=== PATIENT | female | born 1950 | race Caucasian/White ===

== ENCOUNTER 2017-01-12 17:54 | Emergency (ER) | payer MEDICARE, OTHER ==
[~2017-01-12] VITALS: Ht 147.3 cm; Wt 68.2 kg
[2017-01-12 18:28] VITALS: Ht 147.3 cm; Wt 68.2 kg
[2017-01-12] MEDS ORDERED: LIDOCAINE 1% (MDV) 20 ML INJ SC ONE (18:30)
[2017-01-12] MEDS ORDERED: ASPI325T4 PO (18:55)
[2017-01-12] MEDS ORDERED: EXEM25TA PO (18:55)
[2017-01-12] MEDS ORDERED: DOCU-144 PO (18:55)
[2017-01-12] MEDS ORDERED: OMEP-28 PO (18:55)
[2017-01-12] MEDS ORDERED: METH-493 PO (18:55)
[2017-01-12] MEDS ORDERED: ATOR10TA65 PO (18:55)
[2017-01-12] MEDS ORDERED: METO-335 PO (18:55)
[2017-01-12] MEDS ORDERED: INSU100C SQ (18:55)
--- NOTE | 2017-01-12 18:55 | ERD ---
ER Documentation Chief Complaint Chief Complaint biba fr Brent Herrera, large red draining wound middle of back x2 wks HPI 66-year-old female presents here in emergency department for complaints of a redness and swelling in the back one week now. Patient is complaining of pain throbbing pain, 6/10 scale, as was upon touching the area. Patient denies any fever or chills. Patient is diabetic. ROS All systems reviewed and are negative except as per history of present illness. Medications Home Meds Reported Medications Omeprazole Magnesium (Omeprazole Magnesium) Unknown Strength Capsule.dr, PO DAILY, #30 CAP 01/12/17 Metoprolol Succinate* (Toprol XL*) Unknown Strength Tab.sr.24h, PO DAILY, #90 TAB 01/12/17 Methimazole* (Methimazole*) Unknown Strength Tablet, PO TID, TAB 01/12/17 Insulin Lispro (Humalog) Unknown Strength Cartridge, SQ 01/12/17 Exemestane* (Exemestane*) Unknown Strength Tablet, PO, TAB 01/12/17 Docusate Sodium* (Colace*) Unknown Strength Capsule, PO DAILY, #30 CAP 01/12/17 Atorvastatin Calcium (Atorvastatin Calcium) Unknown Strength Tablet, PO QHS, # 30 TAB 01/12/17 Aspirin* (Aspirin*) Unknown Strength Tablet, PO DAILY, TAB 01/12/17 Allergies Allergies: Coded Allergies: No Known Allergy (Unverified , 05/03/13) PMhx/Soc History of Surgery: Yes (rue fx with meatl slime placement) Anesthesia Reaction: No Hx Neurological Disorder: No Hx Respiratory Disorders: Yes ("OCCASIONAL ASTHMA") Hx Cardiac Disorders: Yes (HTN) Hx Psychiatric Problems: No Hx Miscellaneous Medical Probl: Yes (S/P FALL AT HOME. HTN, ASTHMA.) Hx Alcohol Use: Yes (occ) Hx Substance Use: No Hx Tobacco Use: No (denies) Smoking Status: Never smoker FmHx Family History: No coronary disease, No diabetes, No other Physical Exam Vitals Vital Signs Date Time Temp Pulse Resp B/P Pulse Ox O2 Delivery O2 Flow Rate FiO2 01/12/17 18:28 99.0 79 20 145/64 99 Physical Exam GENERAL: The patient is well developed and appropriate for usual state of health, in no apparent distress. CHEST: Clear to auscultation bilaterally. There are no rales, wheezes or rhonchi. HEART: Regular rate and rhythm. No murmurs, clicks, rubs or gallops. No S3 or S4. ABDOMEN: Soft, nontender and nondistended. Good bowel sounds. No rebound or guarding. No gross peritonitis. No gross organomegaly or masses. No Pittman sign or McBurney point tenderness. BACK: No midline or flank tenderness. EXTREMITIES: Equal pulses bilaterally. There is no peripheral clubbing, cyanosis or edema. No focal swelling or erythema. Full range of motion. Grossly neurovascularly intact. NEURO: Alert and oriented. Cranial nerves 2-12 intact. Motor strength in all 4 extremities with 5/5 strength. Sensation grossly intact. Normal speech and gait. SKIN: 6 cm erythematous indurated area in the back, tender on palpation, fluctuant. There is no apparent rash or petechia. The skin is warm and dry. HEMATOLOGIC AND LYMPHATIC: There is no evidence of excessive bruising or lymphedema. No gross cervical, axillary, or inguinal lymphadenopathy. Results 24 hrs Current Medications Medications (Trade) Dose Ordered Sig/Blade Route PRN Reason Start Time Stop Time Status Last Admin Dose Admin Lidocaine (Xylocaine 1% (Mdv) 20 ml) 3 ml ONCE ONCE SC 01/12/17 18:30 01/12/17 18:46 DC Clindamycin Phosphate (Cleocin) 600 mg ONCE ONCE IM 01/12/17 19:00 01/12/17 19:01 DC Procedures/MDM Procedure Note: After obtaining informed consent, the wound was irrigated with 250 ml of normal saline and cleaned with diluted betadine. Using aseptic technique, 3 ml of 1% lidocaine was injected on the subcutaneous tissue of the abscess where the fluctuant area is at. After the anesthetic, a 2 cm incision was done in the middle of the fluctuant area of the abscess. Pustular discharge was drained from the abscess. The abscess wound was loosely packed with iodoform dressing. After the procedure, dry dressing was applied on the area. Patient tolerated procedure well. Medical decision making: Patient symptoms likely is consistent with a soft tissue abscess. Patient was given IM clindamycin here in emergency department, sent home with clindamycin. Patient does not have any symptoms of sepsis at this time, patient appears once hemodynamically stable, tolerated procedure well. He was advised to have completed, changing of dressing in 2 days, follow with primary care doctor in 2-3 days for reevaluation of symptoms, return for worsening symptoms. Disposition: Home. Stable Departure Diagnosis: Primary Impression: Soft tissue abscess Condition: Stable Patient Instructions: Abscess, Incision And Drainage Additional Instructions: Patient symptoms likely is consistent with a soft tissue abscess. Patient was given IM clindamycin here in emergency department, sent home with clindamycin. Patient does not have any symptoms of sepsis at this time, patient appears well and is hemodynamically stable, tolerated procedure well. He was advised to have completed, changing of dressing in 2 days, follow with primary care doctor in 2-3 days for reevaluation of symptoms, return for worsening symptoms. TOSIN LUNA NP Jan 12, 2017 18:55
[2017-01-12] MEDS ORDERED: CLINDAMYCIN 300 MG INJ IM ONE (19:00)
[2017-01-12] MEDS ORDERED: CLIN-73 PO (19:26)
[2017-01-12 19:42] VITALS: TEMP 98.2
[2017-01-12 20:43] VITALS: BP 135/80; PULSE 88; RESP 18
== END 2017-01-12 20:44 | disposition home or self-care (01) ==
LOC: E/R 17:54 → FTE 20:44
DX: L02.212 Cutaneous abscess of back [any part, except buttock and flank] (principal); I10 Essential (primary) hypertension; J45.909 Unspecified asthma, uncomplicated; E11.9 Type 2 diabetes mellitus without complications; Z79.4 Long term (current) use of insulin; Z79.82 Long term (current) use of aspirin
CPT/HCPCS: 96372

== ENCOUNTER 2017-01-17 08:58 | Emergency (ER) | payer MEDICARE, OTHER ==
[~2017-01-17] VITALS: Ht 154.9 cm; Wt 70.5 kg
[~2017-01-17 08:58] MED LIST: ASPI325T4 PO; ATOR10TA65 PO; CLIN-73 PO; DOCU-144 PO; EXEM25TA PO; INSU100C SQ; METH-493 PO; METO-335 PO; OMEP-28 PO
[2017-01-17 09:02] VITALS: Ht 154.9 cm; Wt 70.5 kg
--- NOTE | 2017-01-17 10:28 | ERD ---
ER Documentation Chief Complaint Chief Complaint FOR WOUND CHECK ON LOWER BACK NOREEN HPI 66-year-old female, with history of diabetes and stage IV breast cancer, presents to the emergency department for wound check and repacking of an abscess in her lower back. Denies fevers, chills. Refers good compliance with medications no side effects ROS All systems reviewed and are negative except as per history of present illness. Medications Home Meds Active Scripts Clindamycin Hcl* (Clindamycin Hcl*) 300 Mg Capsule, 300 MG PO TID for 10 Days, CAP Prov:TOSIN LUNA NP 01/12/17 Reported Medications Omeprazole Magnesium (Omeprazole Magnesium) Unknown Strength Capsule.dr, PO DAILY, #30 CAP 01/12/17 Metoprolol Succinate* (Toprol XL*) Unknown Strength Tab.sr.24h, PO DAILY, #90 TAB 01/12/17 Methimazole* (Methimazole*) Unknown Strength Tablet, PO TID, TAB 01/12/17 Insulin Lispro (Humalog) Unknown Strength Cartridge, SQ 01/12/17 Exemestane* (Exemestane*) Unknown Strength Tablet, PO, TAB 01/12/17 Docusate Sodium* (Colace*) Unknown Strength Capsule, PO DAILY, #30 CAP 01/12/17 Atorvastatin Calcium (Atorvastatin Calcium) Unknown Strength Tablet, PO QHS, # 30 TAB 01/12/17 Aspirin* (Aspirin*) Unknown Strength Tablet, PO DAILY, TAB 01/12/17 Allergies Allergies: Coded Allergies: No Known Allergy (Unverified , 05/03/13) PMhx/Soc History of Surgery: Yes (rue fx with meatl slime placement) Anesthesia Reaction: No Hx Neurological Disorder: No Hx Respiratory Disorders: Yes ("OCCASIONAL ASTHMA") Hx Cardiac Disorders: Yes (HTN) Hx Psychiatric Problems: No Hx Miscellaneous Medical Probl: Yes (S/P FALL AT HOME. HTN, ASTHMA.) Hx Alcohol Use: Yes (occ) Hx Substance Use: No Hx Tobacco Use: No (denies) Physical Exam Vitals Vital Signs Date Time Temp Pulse Resp B/P Pulse Ox O2 Delivery O2 Flow Rate FiO2 01/17/17 09:02 98.6 68 18 155/67 98 Physical Exam Const: Alert, oriented, in no distress Head: Atraumatic Eyes: Normal Conjunctiva Resp: Clear to auscultation bilaterally Cardio: Regular rate and rhythm, no murmurs Skin: Lower back with abscesses status post I&D, no active purulent discharge , surrounded by induration. No erythema warm or fluctuance Procedures/MDM 66-year-old female, with history of diabetes and stage IV breast cancer presents for wound check and abscess repacking. Good compliance with medications no side effects. Physical exam unremarkable. The skin in the back showed well healing wound, no purulent discharge, no erythema no warmth. Wound care performed by me: Packing removed, approximately 2 cm cavity probed, the wound was irrigated with normal saline, repacking material was placed without complication. The patient will be discharged home with follow-up in 3 days for wound care and repacking. Departure Diagnosis: Primary Impression: Skin abscess Additional Impression: Wound check, abscess Condition: Stable Additional Instructions: Thank you very much for allowing us to participate in your care. Your health and safety is our top priority at [facility]. Have prescriptions filled and follow precisely the directions on the label. Follow-up with primary care provider during the next 4 days and bring all the information and medications prescribed. If illness has not improved in 2 days, then make an appointment with primary care provider. If the provider is unavailable, return to the Emergency Department immediately. DORY CAMERON MD Jan 17, 2017 10:28
== END 2017-01-17 11:56 | disposition home or self-care (01) ==
LOC: FTE 08:58
DX: Z48.01 Encounter for change or removal of surgical wound dressing (principal); I10 Essential (primary) hypertension; J45.909 Unspecified asthma, uncomplicated; E11.9 Type 2 diabetes mellitus without complications; Z79.82 Long term (current) use of aspirin; Z79.4 Long term (current) use of insulin
CPT/HCPCS: 99281

== ENCOUNTER 2017-01-21 09:09 | Emergency (ER) | payer MEDICARE, OTHER ==
[~2017-01-21] VITALS: Ht 147.3 cm; Wt 70.9 kg
[2017-01-21 09:13] VITALS: Ht 147.3 cm; Wt 70.9 kg
--- NOTE | 2017-01-21 10:24 | ERD ---
ER Documentation Chief Complaint Chief Complaint for recheck on abcess on mid back HPI 66-year-old female history of diabetes, stage IV breast cancer comes in for wound check for an abscess that was incised and drained. Patient states that she has a nurse who has been changing the packing and dressing. She has not had any difficulty with the area, no pain or drainage or fevers or chills. ROS All systems reviewed and are negative except as per history of present illness. Medications Home Meds Active Scripts Clindamycin Hcl* (Clindamycin Hcl*) 300 Mg Capsule, 300 MG PO TID for 10 Days, CAP Prov:TOSIN LUNA NP 01/12/17 Reported Medications Omeprazole Magnesium (Omeprazole Magnesium) Unknown Strength Capsule.dr, PO DAILY, #30 CAP 01/12/17 Metoprolol Succinate* (Toprol XL*) Unknown Strength Tab.sr.24h, PO DAILY, #90 TAB 01/12/17 Methimazole* (Methimazole*) Unknown Strength Tablet, PO TID, TAB 01/12/17 Insulin Lispro (Humalog) Unknown Strength Cartridge, SQ 01/12/17 Exemestane* (Exemestane*) Unknown Strength Tablet, PO, TAB 01/12/17 Docusate Sodium* (Colace*) Unknown Strength Capsule, PO DAILY, #30 CAP 01/12/17 Atorvastatin Calcium (Atorvastatin Calcium) Unknown Strength Tablet, PO QHS, # 30 TAB 01/12/17 Aspirin* (Aspirin*) Unknown Strength Tablet, PO DAILY, TAB 01/12/17 Allergies Allergies: Coded Allergies: No Known Allergy (Unverified , 05/03/13) PMhx/Soc History of Surgery: Yes (rue fx with mentle slime placement) Anesthesia Reaction: No Hx Neurological Disorder: No Hx Respiratory Disorders: Yes ("OCCASIONAL ASTHMA") Hx Cardiac Disorders: Yes (HTN) Hx Psychiatric Problems: No Hx Miscellaneous Medical Probl: Yes Hx Alcohol Use: Yes (occ) Hx Substance Use: No Hx Tobacco Use: No (denies) Physical Exam Vitals Vital Signs Date Time Temp Pulse Resp B/P Pulse Ox O2 Delivery O2 Flow Rate FiO2 01/21/17 09:13 98.6 58 16 125/58 98 Physical Exam General: Well-developed, well-nourished. The patient appears in no acute distress. HEENT: Head is normocephalic, atraumatic. No scleral icterus. Neck: Supple. Nontender. Lungs: Clear to auscultation. Normal air movement. Heart: Regular rate and rhythm. S1 and S2 are normal. No murmurs, gallops, or rubs. Abdomen: Nondistended. Extremities: No clubbing or cyanosis. Moving extremities x 4. No weakness. Neurologic: Alert and oriented 3. No focal deficits. Normal speech and gait. Skin: 1 cm incision in the mid to lower back, it is dry, without erythema, indurated, no streaking, no purulent drainage. Procedures/MDM ED course: Wound check was done, packing material was removed. The wound was repacked, with a clean dressing. There is a cavity where the abscess was, allow for secondary healing with packing to continue. There is no evidence of infection or deep space infection and patient may follow up outpatient. Patient's blood pressure was elevated (>120/80) but appears stable without evidence of hypertension emergency or urgency. The patient was counseled about the risks of hypertension and urged to pursue outpatient monitoring and therapy within a week with their primary care physician. Departure Diagnosis: Primary Impression: Encounter for wound re-check Condition: Good Patient Instructions: Wound Care, Wound Packing DANGELO MARCOS PA-C Jan 21, 2017 10:24
== END 2017-01-21 10:49 | disposition home or self-care (01) ==
LOC: FTE 09:09
DX: Z48.01 Encounter for change or removal of surgical wound dressing (principal); I10 Essential (primary) hypertension; E11.9 Type 2 diabetes mellitus without complications; Z79.4 Long term (current) use of insulin; Z79.82 Long term (current) use of aspirin; Z85.3 Personal history of malignant neoplasm of breast
CPT/HCPCS: 99281

== ENCOUNTER 2018-09-04 03:57 | Emergency (ER) | payer MEDICARE, OTHER ==
[~2018-09-04] VITALS: Ht 147.3 cm; Wt 70.2 kg
[~2018-09-04 03:57] MED LIST changes: +ASPI325T30 PO; -ASPI325T4 PO; -CLIN-73 PO; +CLIN300C10 PO
[2018-09-04 04:05] VITALS: BP 166/74; PULSE 103; RESP 20; Ht 147.3 cm; Wt 70.2 kg
[2018-09-04] MEDS ORDERED: CEPH-443 PO (06:18)
[2018-09-04] MEDS ORDERED: SULF1TAB31 PO (06:18)
--- NOTE | 2018-09-04 07:00 | ERD ---
ER Documentation Chief Complaint Chief Complaint bib [id number] for bleeding wound right temporal area x 30 min ago HPI This is a 68-year-old female with history of diabetes and stage IV breast cancer who was brought in by rescue ambulance from her assisted living facility for a bleeding wound to her temporal region. Patient states she has had this wound ongoing for the past 1 year. Patient states wound has been progressively increasing in size. She denies any pain. She denies any pus discharge. Denies any associated fevers or chills. She has not been evaluated by her primary care provider for this. ROS All systems reviewed and are negative except as per history of present illness. Medications Home Meds Active Scripts Cephalexin* (Keflex*) 500 Mg Capsule, 500 MG PO QID for 5 Days, CAP Prov:DISHIGRIKIAN,ZEPYUR N PA-C 09/04/18 Sulfamethoxazole/Trimethoprim* (Bactrim Ds* Tablet) 1 Each Tablet, 1 TAB PO BID, #14 TAB Prov:DISHIGRIKIAN,ZEPYUR N PA-C 09/04/18 Clindamycin Hcl* (Clindamycin Hcl*) 300 Mg Capsule, 300 MG PO TID for 10 Days, CAP Prov:TOSIN LUNA NP 01/12/17 Reported Medications Omeprazole Magnesium (Omeprazole Magnesium) Unknown Strength Capsule.dr, PO DAILY, #30 CAP 01/12/17 Metoprolol Succinate* (Toprol XL*) Unknown Strength Tab.sr.24h, PO DAILY, #90 TAB 01/12/17 Methimazole* (Methimazole*) Unknown Strength Tablet, PO TID, TAB 01/12/17 Insulin Lispro (Humalog) Unknown Strength Cartridge, SQ 01/12/17 Exemestane* (Exemestane*) Unknown Strength Tablet, PO, TAB 01/12/17 Docusate Sodium* (Colace*) Unknown Strength Capsule, PO DAILY, #30 CAP 01/12/17 Atorvastatin Calcium (Atorvastatin Calcium) Unknown Strength Tablet, PO QHS, #30 TAB 01/12/17 Aspirin* (Aspirin*) Unknown Strength Tablet, PO DAILY, TAB 01/12/17 Allergies Allergies: Coded Allergies: No Known Allergy (Unverified , 05/03/13) PMhx/Soc History of Surgery: Yes (rue fx with mentle slime placement) Anesthesia Reaction: No Hx Neurological Disorder: No Hx Respiratory Disorders: Yes ("OCCASIONAL ASTHMA") Hx Cardiac Disorders: Yes (HTN) Hx Psychiatric Problems: No Hx Miscellaneous Medical Probl: Yes Hx Alcohol Use: Yes (occ) Hx Substance Use: No Hx Tobacco Use: No (denies) Physical Exam Vitals Vital Signs Date Temp Pulse Resp B/P (MAP) Pulse Ox O2 O2 Flow FiO2 Time Delivery Rate 09/04/18 98.1 103 20 166/74 98 04:05 (104) Physical Exam Const: No acute distress. + Foul-smelling Head: Atraumatic. + Approximately 3 x 2 cm flesh-colored circular nodule along the right temporal scalp, non-mobile. No fluctuance. No surrounding erythema or induration. Eyes: Normal Conjunctiva. EOMI. PERRL. ENT: Normal External Ears, Nose and Mouth. Neck: Full range of motion. No meningismus. Ext: No cyanosis, or edema Neur: Awake and alert Psych: Normal Mood and Affect Procedures/MDM MEDICAL DECISION MAKING: This is a 68-year-old female with history of diabetes and stage IV breast cancer who presents with a mass to her right temporal scalp. I discussed with patient that given her history and presentation, I cannot rule out skin cancer. Wound was dressed with dry gauze and patient was discharged home with prophylactic antibiotics. There is no evidence of cellulitis, abscess or deep space tissue infection at this time. I recommended she follow-up with her oncologist for further evaluation of this mass. Strict return precautions were discussed. This was discussed with my supervising physician, Dr. Carias who agrees with my assessment and plan. PRESCRIPTIONS: Bactrim, Keflex SPECIALIST FOLLOW UP RECOMMENDED: None Patient has been advised to follow up with primary care in 1-2 days. Departure Diagnosis: Primary Impression: Facial mass Condition: Stable Patient Instructions: Types of Skin Cancer, Recognizing Skin Cancer Referrals: [facility] YOU HAVE RECEIVED A MEDICAL SCREENING EXAM AND THE RESULTS INDICATE THAT YOU DO NOT HAVE A CONDITION THAT REQUIRES URGENT TREATMENT IN THE EMERGENCY DEPARTMENT. FURTHER EVALUATION AND TREATMENT OF YOUR CONDITION CAN WAIT UNTIL YOU ARE SEEN IN YOUR DOCTORS OFFICE WITHIN THE NEXT 1-2 DAYS. IT IS YOUR RESPONSIBILITY TO MAKE AN APPOINTMENT FOR FOLOW-UP CARE. IF YOU HAVE A PRIMARY DOCTOR --you should call your primary doctor and schedule and appointment IF YOU DO NOT HAVE A PRIMARY DOCTOR YOU CAN CALL OUR PHYSICIAN REFERRAL HOTLINE AT . IF YOU CAN NOT AFFORD TO SEE A PHYSICIAN YOU CAN CHOSE FROM THE FOLLOWING [facility] INSTITUTIONS: [facility] [address] [place] [address] [facility] [address] [place] [address] [facility] [address] [place] [address] Additional Instructions: You must see your primary care doctor or your oncologist for further evaluation of this. Take the antibiotics for the next few days. Return here for any new or worsening symptoms. KARL MARTIN PA-C Sep 04, 2018 06:59
== END 2018-09-04 06:35 | disposition home or self-care (01) ==
LOC: FTE 03:57
DX: R22.0 Localized swelling, mass and lump, head (principal); I10 Essential (primary) hypertension; Z85.3 Personal history of malignant neoplasm of breast
CPT/HCPCS: 99283